=== PATIENT | male | born 2000 | race Caucasian/White ===

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

== ENCOUNTER 2018-03-26 16:17 | Emergency (ER) | payer SELFPAY ==
[2018-03-26 16:30] VITALS: BP 101/56
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
== END 2018-03-26 17:11 | disposition home or self-care (01) ==
LOC: UCEAST 16:17
DX: R10.31 Right lower quadrant pain (principal); F17.210 Nicotine dependence, cigarettes, uncomplicated
CPT/HCPCS: 99212; G0463

== ENCOUNTER 2018-09-13 13:10 | Emergency (ER) | payer SELFPAY ==
[2018-09-13 13:16] VITALS: BP 108/40
[2018-09-13] MEDS ORDERED: Ondansetron ODT TAB* 4 MG SL ONE (13:25)
--- NOTE | 2018-09-13 13:27 | UC ---
Nausea/Vomiting/Diarrhea HPI - HPI Summary HPI Summary: Here with Girlfriend - 2-3 days of N/V/D. States he vomited once this morning. Has not tried to eat or drink anything today for fear of vomiting. 2 diarrheal episodes today. Diffuse abdominal pain. No fever. +Chills. Good liquid intake prior to today. +Sick contacts - daughter with same symptoms. Cough, Congestion, eyes watery and no rash. PMHx: None Meds: none UTD on vaccines - History of Current Complaint Chief Complaint: UCGeneralIllness Stated Complaint: URI Pain Intensity: 6 - Allergies/Home Medications Allergies/Adverse Reactions: Allergies Allergy/AdvReac Type Severity Reaction Status Date / Time seasonal Allergy Runny Nose Uncoded 09/13/18 13:16 PMH/Surg Hx/FS Hx/Imm Hx - Surgical History Surgical History: None - Family History Known Family History: Negative: Blood Disorder - Social History Alcohol Use: None Substance Use Type: Marijuana Substance Use Comment - Amount & Last Used: 2 weeks Smoking Status (MU): Heavy Every Day Tobacco Smoker Amount Used/How Often: 1/2 PPD Household Exposure Type: Cigarettes - Immunization History Most Recent Influenza Vaccination: 2013 Vaccination Up to Date: Yes Review of Systems Constitutional: Negative Skin: Negative Eyes: Negative ENT: Nasal Discharge, Sinus Congestion Respiratory: Cough Cardiovascular: Negative Gastrointestinal: Abdominal Pain, Vomiting, Diarrhea Is Patient Immunocompromised?: No All Other Systems Reviewed And Are Negative: Yes Physical Exam Triage Information Reviewed: Yes Appearance: Well-Appearing, No Pain Distress Vital Signs: Initial Vital Signs Temp 98.5 F 09/13/18 13:13 Pulse 68 09/13/18 13:13 Resp 16 09/13/18 13:13 BP 108/40 09/13/18 13:13 Pulse Ox 99 09/13/18 13:13 Vital Signs Reviewed: Yes Eyes: Positive: Other: - injected conjunctiva ENT: Positive: Pharyngeal erythema, Nasal drainage, TMs normal Dental Exam: Normal Neck exam: Normal Neck: Positive: Supple Respiratory: Positive: Lungs clear, Normal breath sounds, No respiratory distress Cardiovascular Exam: Normal Abdominal Exam: Normal Abdomen Description: Positive: Nontender, No Organomegaly, Soft Bowel Sounds: Positive: Present Skin Exam: Normal Naus/Vom/Diarrhea Course/Dx - Course Course Of Treatment: This is a 18 year old with N/V/D and URI s/s. Assessment. Nontoxic appearing. Zofran 4 mg ODT given and PO Challenge - Able to drink water without issue. Dx: Viral syndrome. Plan. Continue supportive care. Continue to encourage fluids. Can use tylenol and/or ibuprofen as needed for pain/fever. If symptoms persist or worsen, call primary for further evaluation. Can use decongestant for sinus congestion - Differential Dx/Diagnosis Provider Diagnoses: Viral syndrome Condition At Discharge: Stable Discharge - Sign-Out/Discharge Documenting (check all that apply): Post-Discharge Follow Up All imaging exams completed and their final reports reviewed: No Studies - Discharge Plan Condition: Stable Disposition: HOME Patient Education Materials: Viral Syndrome (ED) Forms: *Work Release Referrals: Jessica Watson MD [Primary Care Provider] - Additional Instructions: Continue supportive care Continue to encourage fluids Can use tylenol and/or ibuprofen as needed for pain/fever If symptoms persist or worsen, call primary for further evaluation Can use decongestant for sinus congestion - Billing Disposition and Condition Condition: STABLE Disposition: Home
== END 2018-09-13 13:38 | disposition home or self-care (01) ==
LOC: UCEAST 13:10
DX: B34.9 Viral infection, unspecified (principal); R11.2 Nausea with vomiting, unspecified; R19.7 Diarrhea, unspecified; F17.210 Nicotine dependence, cigarettes, uncomplicated; Z91.048 Other nonmedicinal substance allergy status
CPT/HCPCS: 99211; A9270-GY; G0463

== ENCOUNTER 2019-08-26 16:21 | Emergency (ER) | payer OTHER ==
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
--- OUTSIDE RECORDS SUMMARY | 2019-08-26 17:00 | XMS REPORT | Continuity of Care Document ---
:2000 External Reference #:[id number] Author Name Jessica Watson M.D. 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 Tablets Neosporin + Pain apply to affected 28.300gm L55.1 Jessica Watson, 05/17/2018 Relief Maximum area 3 times M.D. Strength daily 1% Ointment Lidocaine HCL apply to 250ml L55.1 Jessica Watson, 05/17/2018 2% Gel afftected area M.D. twice a day as needed Tylenol Unknown 325mg Capsules Immunizations Description No Information Available Vital Signs Date Vital Result Comment 05/17/2018 1:34pm BP Systolic 110 mmHg BP Diastolic 70 mmHg Heart Rate 72 /min Respiratory Rate 18 /min Height 71 inches 5'11" Weight 116.00 lb BMI (Body Mass Index) 16.2 kg/m2 O2 % BldC Oximetry 96 % 09/02/2017 12:42pm BP Systolic 100 mmHg BP Diastolic 60 mmHg Results Test Date Facility Test Result H/L Range Note LDL Cholesterol 05/29/2019 [facility] Cholesterol 161 mg/dL <200 1, [address] [place] [address] [phone] Triglycerides 62 mg/dL <150 3 HDL Cholesterol 56 mg/dL >40 4 LDL-Cholesterol 93 mg/dL < 100 5 Ua RFX Micro & 05/28/2019 [facility] Urine Color YELLOW Yellow 6 Culture II [address] [place], [place] [id number] [phone] Urine Clarity SL CLOUDY Clear Urine Glucose - Dipstick NEGATIVE mg/dL Negative Urine Bilirubin - Dipstick NEGATIVE Negative Urine Ketone NEGATIVE mg/dL Negative Urine Specific [place] 1.020 Normal 1.010-1.030 Urine Blood NEGATIVE Negative Urine PH 8.5 High 6.5-7.5 Urine Protein - Dipstick NEGATIVE mg/dL Negative Urine Urobilinogen - Dipstick 0.2 E.U./dL Normal 0.2-1.0 Urine Nitrite - Dipstick NEGATIVE Negative Urine Leuk Esterase NEGATIVE Negative Source: URINE, CLEAN CAT <SEE NOTE> 7 Drugs Of 05/28/2019 [facility] Amphetamines Negative Abuse-Urine Screen [address] (Urine) 7 [place], [place] [id number] [phone] Barbiturates (Urine) Negative Benzodiazepines (Urine) Negative Cannabinoids (Urine) POSITIVE Abnormal Cocaine Metabolite (Urine) Negative Methadone (Urine) Negative Opiates (Urine) Negative Urine Cutoffs * 8 CBS W/Automated 05/28/2019 [facility] White 5.2 K/uL Normal 3.4-10.5 [address] [place] [address] Count [phone] Red Blood Count 4.75 M/uL Normal 4.20-5.80 Hemoglobin 15.5 gm/dL Normal 12.8-17.0 Hematocrit 43.5 % Normal 38.0-48.0 Mean Cell Volume 91.6 fl Normal 80.0-96.0 Mean Corpuscular HGB 32.6 pg Normal 27.0-33.0 Mean Corpuscular HGB Conc 35.6 g/dL Normal 31.7-36.0 Platelet Count 194 K/uL Normal 155-360 Red Cell Distri Width SD 40.1 fl Normal 36-51 Red Cell Distri Width %CV 11.9 % Normal 11.6-15.8 Mean Platelet Volume 9.5 fl Normal 6.6-10.6 Neut% 48.2 % Normal 33.0-73.0 Lymph % 44.2 % High 20.0-42.0 Grainger % 6.0 % Normal 0.0-10.0 Eo% 0.8 % Normal 0.0-6.6 Bas% 0.6 % Normal 0.0-1.1 Immature Grans 0.2 % Normal 0.0-5.0 NRBC % 0.0 /100WBC < 10/ 100 WBC Neut# 2.51 K/uL Normal 1.8-7.0 Lymph # 2.30 K/uL Normal 1.0-4.0 Grainger # 0.31 K/uL Normal 0.0-0.8 Eos # 0.04 K/uL Normal 0.0-0.5 Baso # 0.03 K/uL Normal 0.0-0.1 Immature Grans Absolute 0.01 K/uL NRBC # 0.00 K/uL Laboratory test 05/28/2019 [facility] Salicylate 2.0 mg/dL Low 2.8-20.0 [address] [place] [address] [phone] Comprehensive 05/28/2019 [facility] Glucose 92 mg/dL Normal 74-106 Metabolic Panel [address] [place] [address] [phone] BUN 15 mg/dL Normal 7-18 Creatinine 0.9 mg/dL Normal 0.6-1.3 Glom Filtration Rate, Estimate >60 mL/min >60 If >60 mL/min >60 11 BUN/Creat 16.6 ratio Sodium 140 mmol/L Normal 136-145 Potassium 4.2 mmol/L 3.5-5.1 Chloride 106 mmol/L Normal 98-107 Carbon Dioxide 25 mmol/L Normal 21-32 Anion Gap 9 mEq/L Normal 8-16 Calcium 9.2 mg/dL Normal 8.5-10.1 Total Protein 8.2 g/dL Normal 6.4-8.2 Albumin 4.7 g/dL Normal 3.4-5.0 Globulin 3.5 g/dL Normal 1.9-4.3 Alb/Glob 1.3 ratio Bilirubin,Total 0.8 mg/dL Normal 0.2-1.0 Sgot/Ast 17 U/L Normal 15-37 SGPT/Alt 27 U/L Normal 12-78 Alkaline Phosphatase 94 U/L Normal 45-117 Laboratory 05/28/2019 [facility] TSH Reflex FT4 1.06 Normal 0.30-4.20 test finding [address] and/or FT3 uIU/[place] [address] [phone] Laboratory 05/28/2019 [facility] Acetaminophen < 2.0 Low 10.0-30.0 12 test finding [address] ug/[place] [address] [phone] Ethyl Alcohol < 3.0 mg/dL 1 UNSPECIFIED DEPRESSIVE D/O 2 Reference Guidelines*: Desirable: ........... < 200 mg/dL Borderline High: ..... 200-239 mg/dL High: ................ >= 240 mg/dL * The National Cholesterol Education Program (NCEP) 3 Reference Guidelines*: Normal: ............. < 150 mg/dL Borderline High: .... 150-199 mg/dL High: ............... 200-499 mg/dL Very High: .......... > 500 mg/dL * Source: National Cholesterol Education Program (NCEP) 4 Reference Guidelines*: Low HDL: ..... < 40 mg/dL Normal: ..... 40-60 mg/dL Desirable: ... > 60 mg/dL *The National Cholesterol Education Program(NCEP) 5 Reference Guidelines*: Optimal:........... <100 mg/dL Near Optimal....... 100-129 mg/dL Borderline High.... 130-159 mg/dL High............... 160-189 mg/dL Very High.......... >=190 mg/dL * Source: National Cholesterol Education Program (NCEP) 6 PSYCH SERVICES 7 URINE, CLEAN CATCH 8 URINE SPECIMENS ARE SCREENED AT THE LISTED CUTOFFS DRUG CLASS INITIAL TEST LEVEL Amphetamines 1000 ng/mL Barbiturates 200 ng/mL Benzodiazepines 200 ng/mL Cannabinoids 50 ng/mL Cocaine Metabolite 300 ng/mL Methadone 300 ng/mL Opiates 300 ng/mL Any PRESUMPTIVE POSITIVE findings are UNCONFIRMED. Confirmatory testing is suggested if findings are unexpected. Please contact laboratory if confirmatory testing is desired. SPECIMENS ARE HELD FOR 72 HOURS. 9 MENTAL HEALTH EVAL, 941 10 THERAPEUTIC RANGE: 15-30 mg/dL POTENTIAL TOXICITY VARIES WITH TIME FROM INGESTION. PLEASE CONSULT APPROPRIATE NOMOGRAM. 11 Note: Persistent reduction for 3 months or more in an eGFR <60 mL/min/1.73 m2 defines CKD. Patients with eGFR values >/=60 mL/min/1.73 m2 may also have CKD if evidence of persistent proteinuria is present. The original MDRD equation for estimated GFR is not valid for patients less than 18 years of age. Additional information may be found at www.kdoqi.org. 12 Acetaminophen concentration >150 ug/mL at four hours after ingestion and 50.0 ug/mL at twelve hours after ingestion are often associated with toxic reactions. Procedures Description No Information Available Medical Devices Description No Information Available Encounters Description No Information Available Assessments Description No Information Available Plan of Treatment No Information Available Functional Status Description No Information Available Mental Status Description No Information Available Referrals Description No Information Available
[2019-08-26 17:57] VITALS: BP 115/72
== END 2019-08-26 17:54 | disposition home or self-care (01) ==
LOC: ED 16:21
DX: S06.0X9A Concussion with loss of consciousness of unspecified duration, initial encounter (principal); S00.83XA Contusion of other part of head, initial encounter; R51 Headache; F17.210 Nicotine dependence, cigarettes, uncomplicated; W18.00XA Striking against unspecified object with subsequent fall, initial encounter; Y92.9 Unspecified place or not applicable
CPT/HCPCS: 70450; 70486; 72125; 99282

== ENCOUNTER 2019-10-25 10:42 | Emergency (ER) | payer MEDICAID, OTHER ==
[2019-10-25] MEDS ORDERED: Ibuprofen ADULT LIQ* 600 MG/30 ML UDC PO PRN (12:16)
[2019-10-25] MEDS ORDERED: Ibuprofen TAB* 600 MG ONE (12:24)
[2019-10-25] MEDS ORDERED: Ibuprofen TAB* 600 MG PO ONE (12:26)
--- NOTE | 2019-10-25 12:27 | ED ---
Lower Extremity - HPI Summary HPI Summary: 19-year-old male significant past medical history presents to the emergency department today complaining of right ankle pain after being struck by a snowplow in the ankle this afternoon. Patient endorses 10 ankle pain which is made worse with standing and movement. he states he has not taken any medication prior to arrival. There is no edema or obvious deformity or ecchymosis noted to the area of the right ankle. He has decreased range of motion due to pain but has full sensation in the right ankle and foot. Family history and social history is noncontributory. He denies fever, chest pain, abdominal pain, pain with urination, rash. - History of Current Complaint Chief Complaint: EDExtremityLower Stated Complaint: RT FOOT INJ PER PT Time Seen by Provider: 10/25/19 12:12 Hx Obtained From: Patient Mechanism Of Injury: Blunt Trauma Onset of Pain: Immediate Onset/Duration: Hours Severity Initially: Severe Severity Currently: Severe Pain Intensity: 8 Pain Scale Used: 0-10 Numeric Timing: Constant Location: Is Discrete @ - Right ankle Character Of Pain: Sharp, Aching Associated Signs And Symptoms: Negative: Swelling, Redness, Bruising, Fever Aggravating Factor(s): Standing, Ambulation, Movement, Weight Bearing, Stairs Alleviating Factor(s): Rest Able to Bear Weight: Yes - Allergies/Home Medications Allergies/Adverse Reactions: Allergies Allergy/AdvReac Type Severity Reaction Status Date / Time seasonal Allergy Runny Nose Uncoded 09/13/18 13:16 PMH/Surg Hx/FS Hx/Imm Hx Endocrine/Hematology History: Denies: Hx Diabetes, Hx Thyroid Disease Cardiovascular History: Denies: Hx Hypertension Respiratory History: Reports: Hx Asthma - CHILDHOOD ASTHMA Denies: Hx Chronic Obstructive Pulmonary Disease (COPD) GI History: Denies: Hx Ulcer - Surgical History Surgery Procedure, Year, and Place: None Infectious Disease History: No Infectious Disease History: Denies: Hx Hepatitis, Hx Human Immunodeficiency Virus (HIV), Traveled Outside the [place] in Last 30 Days - Family History Known Family History: Positive: Hypertension, Other - cancer Negative: Blood Disorder - Social History Alcohol Use: Weekly Hx Substance Use: Yes Substance Use Type: Reports: Marijuana Substance Use Comment - Amount & Last Used: 2 weeks Hx Tobacco Use: Yes Smoking Status (MU): Heavy Every Day Tobacco Smoker Amount Used/How Often: 1/2 PPD Review of Systems Constitutional: Negative Eyes: Negative ENT: Negative Cardiovascular: Negative Respiratory: Negative Gastrointestinal: Negative Genitourinary: Negative Positive: Myalgia, Decreased ROM Skin: Negative Neurological: Negative Psychological: Normal All Other Systems Reviewed And Are Negative: Yes Physical Exam - Summary Physical Exam Summary: Inspection reveals no ecchymosis, edema, erythema of the right ankle. Patient has decreased range of motion due to pain. Dorsalis pedis pulses 2+ bilaterally. Patient is neurovascularly intact bilaterally. Strength is diminished to 3 out of 5 in the right ankle due to pain. Negative anterior drawer. No tenderness with palpation of the fifth metatarsal head or proximal fibula. Triage Information Reviewed: Yes Vital Signs On Initial Exam: Initial Vitals Temp Pulse Resp BP Pulse Ox 98.1 F 91 16 121/82 98 10/25/19 10:43 10/25/19 10:43 10/25/19 10:43 10/25/19 10:43 10/25/19 10:43 Vital Signs Reviewed: Yes Appearance: Positive: Well-Appearing, No Pain Distress, Well-Nourished Skin: Positive: Warm, Skin Color Reflects Adequate Perfusion Eyes: Positive: EOMI, RANDAL ENT: Positive: Hearing grossly normal Respiratory/Lung Sounds: Positive: Clear to Auscultation, Breath Sounds Present Cardiovascular: Positive: RRR, S1, S2 Musculoskeletal: Negative: Strength/ROM Intact, Edema Left Neurological: Positive: Sensory/Motor Intact, Alert, Oriented to Person Place, Time, Normal Gait, Speech Normal Psychiatric: Positive: Normal AVPU Assessment: Alert Procedures - Sedation Patient Received Moderate/Deep Sedation with Procedure: No Diagnostics - Vital Signs Vital Signs Temp Pulse Resp BP Pulse Ox 10/25/19 10:43 98.1 F 91 16 121/82 98 - Laboratory Lab Statement: Any lab studies that have been ordered have been reviewed, and results considered in the medical decision making process. Lower Extremity Course/Dx - Course Course Of Treatment: Patient was evaluated in the emergency department for right ankle pain. Patient seen and examined vitals stable. X-rays revealed no fracture of the ankle or foot. Patient was given ibuprofen for pain as well as a gel splint for the right ankle as well as crutches. He is told to take ibuprofen 600 mg every 6 hours as needed for pain and to practice R.I.C.E therapy. He is told to follow up with his primary care provider or orthopedic doctor for further evaluation and management of symptoms. He agrees with this plan. - Diagnoses Differential Diagnosis/HQI/PQRI: Positive: Arthritis, Contusion, Fracture ( Closed), Sprain, Strain Provider Diagnoses: Ankle pain, right Discharge ED - Sign-Out/Discharge Documenting (check all that apply): Patient Departure - Discharge Plan Condition: Stable Disposition: HOME Patient Education Materials: Arthralgia (ED) Referrals: Jessica Watson MD [Primary Care Provider] - Additional Instructions: You were seen in the emergency department today for ankle pain. X-rays were taken and revealed no evidence of fracture of the ankle or foot. You likely sustained an ankle bruise/minor sprain. We have given you a gel Aircast which will help reinforce your ankle while it heals. Please follow up with your primary care provider or orthopedics within 7 days if your symptoms do not begin to improve. you may take ibuprofen 600 mg every 6 hours as needed for pain. Please return to the emergency department immediately if you develop any new or worsening symptoms. Return to activity as tolerated. Weight bearing as tolerated. - Billing Disposition and Condition Condition: STABLE Disposition: Home
[2019-10-25 12:32] VITALS: BP 120/80
[2019-10-25] MEDS ORDERED: Ibuprofen TAB* 600 MG PO PRN (13:00)
== END 2019-10-25 12:31 | disposition home or self-care (01) ==
LOC: ED 10:42
DX: M25.571 Pain in right ankle and joints of right foot (principal); F17.200 Nicotine dependence, unspecified, uncomplicated
CPT/HCPCS: 99282; A9270-GY

== ENCOUNTER 2019-12-04 16:42 | Emergency (ER) | payer OTHER ==
--- NOTE | 2019-12-04 16:59 | ED ---
Throat Pain/Nasal Congestion - HPI Summary HPI Summary: Patient complains of throat pain only when swallowing 1 week. States he noticed some red and white spots in his throat. Dry cough 1 month. Denies fever, ear pain, CP, SOB, N/V/D, abdominal pain, change in hearing, change in BM. Medical history is none. Positive smoker. - History of Current Complaint Chief Complaint: EDThroatPain Time Seen by Provider: 12/04/19 16:55 Hx Obtained From: Patient Onset/Duration: Gradual Onset, Lasting Days Severity: Moderate Associated Signs And Symptoms: Positive: Dysphagia Cough: Nonproductive - Epiglottits Risk Factors Epiglottis Risk Factors: Negative - Allergies/Home Medications Allergies/Adverse Reactions: Allergies Allergy/AdvReac Type Severity Reaction Status Date / Time seasonal Allergy Runny Nose Uncoded 12/04/19 16:49 PMH/Surg Hx/FS Hx/Imm Hx Endocrine/Hematology History: Denies: Hx Diabetes, Hx Thyroid Disease Cardiovascular History: Denies: Hx Hypertension Respiratory History: Reports: Hx Asthma - CHILDHOOD ASTHMA Denies: Hx Chronic Obstructive Pulmonary Disease (COPD) GI History: Denies: Hx Ulcer History: Denies: Hx Dialysis Sensory History: Denies: Hx Eye Prosthesis Opthamlomology History: Denies: Hx Legally Blind EENT History: Denies: Hx Deafness Neurological History: Denies: Hx Dementia - Surgical History Surgery Procedure, Year, and Place: None Infectious Disease History: No Infectious Disease History: Denies: Hx Hepatitis, Hx Human Immunodeficiency Virus (HIV), Traveled Outside the [place] in Last 30 Days - Family History Known Family History: Positive: Hypertension, Other - cancer Negative: Blood Disorder - Social History Alcohol Use: Weekly Hx Substance Use: Yes Substance Use Type: Reports: Marijuana Substance Use Comment - Amount & Last Used: 2 weeks Hx Tobacco Use: Yes Smoking Status (MU): Heavy Every Day Tobacco Smoker Amount Used/How Often: 1/2 PPD Review of Systems Constitutional: Negative Eyes: Negative Positive: Sore Throat Cardiovascular: Negative Respiratory: Negative Gastrointestinal: Negative Genitourinary: Negative Musculoskeletal: Negative Skin: Negative Neurological: Negative Psychological: Normal All Other Systems Reviewed And Are Negative: Yes Physical Exam - Summary Physical Exam Summary: No white spots, exudates, lesions noted in mouth. Red bumps on lateral surfaces of tongue bilaterally. Cobblestoning at back throat. Triage Information Reviewed: Yes Vital Signs On Initial Exam: Initial Vitals Temp Pulse Resp BP Pulse Ox 98.3 F 96 16 136/110 99 12/04/19 16:45 12/04/19 16:45 12/04/19 16:45 12/04/19 16:45 12/04/19 16:45 Vital Signs Reviewed: Yes Appearance: Positive: Well-Appearing Skin: Positive: Warm Head/Face: Positive: Normal Head/Face Inspection Eyes: Positive: Normal ENT: Positive: Pharyngeal erythema, TMs normal, Uvula midline. Negative: Tonsillar swelling, Tonsillar exudate, Trismus, Muffled voice, Hoarse voice, Sinus tenderness Neck: Positive: Supple Respiratory/Lung Sounds: Positive: Clear to Auscultation Cardiovascular: Positive: Normal Abdomen Description: Positive: Nontender Musculoskeletal: Positive: Normal Neurological: Positive: Normal Psychiatric: Positive: Normal AVPU Assessment: Alert - Iesha Coma Scale Best Eye Response: 4 - Spontaneous Best Motor Response: 6 - Obeys Commands Best Verbal Response: 5 - Oriented Coma Scale Total: 15 Procedures - Sedation Patient Received Moderate/Deep Sedation with Procedure: No Diagnostics - Vital Signs Vital Signs Temp Pulse Resp BP Pulse Ox 12/04/19 16:45 98.3 F 96 16 136/110 99 - Laboratory Lab Statement: Any lab studies that have been ordered have been reviewed, and results considered in the medical decision making process. EENT Course/Dx - Course Course Of Treatment: Patient complains of throat pain only when swallowing 1 week. States he noticed some red and white spots in his throat. Dry cough 1 month. Denies fever, ear pain, CP, SOB, N/V/D, abdominal pain, change in hearing, change in BM. Medical history is none. Positive smoker. Vital signs within normal limits. [place] negative, flu negative. Strep negative. Likely viral syndrome or allergies. - Diagnoses Provider Diagnoses: Pharyngitis Discharge ED - Sign-Out/Discharge Documenting (check all that apply): Patient Departure - Discharge Plan Condition: Stable Disposition: HOME Prescriptions: Lidocaine 2% VISCOUS* [Xylocaine 2% Viscous*] 15 ml SWISH SPIT Q6H PRN #1 btl PRN Reason: Pain - Moderate Patient Education Materials: Pharyngitis (ED) Referrals: Jessica Watson MD [Primary Care Provider] - Additional Instructions: Use lidocaine in throat for 2-3 mins to help prevent pain while eating. Gargle with salt water. Take Claritin once daily for possible allergies. Follow-up with primary care. Return to the ED for any new or worsening symptoms. - Billing Disposition and Condition Condition: STABLE Disposition: Home
[2019-12-04] MEDS: Lidocaine 2% VISCOUS* 15 ML UDC PO ONE ×2 (17:12→17:13)
[2019-12-04 17:28] LABS: Rapid Strep Molecular Negative (Negative)
[2019-12-04 17:33] LABS: Influenza A Molecular NEGATIVE (Negative); Influenza B Molecular NEGATIVE (Negative)
[2019-12-04] MEDS ORDERED: Lidocaine 2% VISCOUS* 15 ML UDC PO ONE (18:06)
[2019-12-04 18:19] VITALS: BP 121/84
== END 2019-12-04 18:18 | disposition home or self-care (01) ==
LOC: ED 16:42
DX: J02.9 Acute pharyngitis, unspecified (principal); R13.10 Dysphagia, unspecified; F17.210 Nicotine dependence, cigarettes, uncomplicated
CPT/HCPCS: 36415; 86308; 87651; 99283